=== PATIENT | male | born 1970 ===

== ENCOUNTER 2025-01-26 08:00 | Day surgery (SDC) | payer OTHER ==
[2025-01-22 13:55] VITALS: BP 129/93
[~2025-01-26] VITALS: Ht 167.6 cm; Wt 85.7 kg
[~2025-01-26 08:00] MED LIST: BUTALB-ACETAMI1 EAC2 PO; LOSARTAN POTASS50 MG PO; ROSUVASTATIN CAL5 MG PO
[2025-01-26] MEDS ORDERED: CLINDAMYCIN PHOSPHATE 150 MG/ML (900mg) ONE (09:06)
[2025-01-26] MEDS ORDERED: SUGAMMADEX SODIUM 200 MG/2 ML VIAL IV ONE (10:50)
== END 2025-01-26 13:50 | disposition home or self-care (01) ==
LOC: CIR.AMB 08:00
PROVIDERS: ATTEND Surgery
DX: K42.0 Umbilical hernia with obstruction, without gangrene (principal); Z88.0 Allergy status to penicillin
CPT/HCPCS: 49594; C1781